=== PATIENT | female | born 1975 | race Caucasian/White ===

== ENCOUNTER → 2017-04-02 | Outpatient (CLI) | payer OTHER ==
[~2017-04-02] MED LIST: ASPCH81 PO; FOLI1TAB7 PO
--- NOTE | 2017-04-02 15:38 | MAMMOGRAPHY REPORT ---
BILATERAL DIGITAL DIAGNOSTIC MAMMOGRAM TOMOSYNTHESIS AND TARGETED BILATERAL ULTRASOUND: 04/02/2017 CLINICAL HISTORY: The patient was called back from a screening mammogram performed at an outside [facility] for bilateral asymmetries. TECHNIQUE: Breast tomosynthesis in addition to standard 2D mammography was performed. Left MLO 2-D and tomosynthesis images, right MLO and left cc tomosynthesis images including C views, and spot comp ression right CC 2-D and tomosynthesis images were obtained. COMPARISON: Comparison is made to exams dated: 07/10/2009 ultrasound, 07/10/2009 mammogram - [facility], and 03/22/2017 mammogram - [facility]. BREAST COMPOSITION: The tissue of both breasts is heterogeneously dense, which may obscure small mas ses. FINDINGS: The previously described asymmetry within the left inferior breast seen on the MLO view eff aces on the additional views and has the appearance of normal fibroglandular tissue. The previously described asymmetry within the right medial posterior breast also effaces on the additional views and has the appearance of normal fibroglandular tissue on the additional images. There are no suspiciou s masses, calcifications, or areas of architectural distortion noted in either breast on the addition al views. Targeted ultrasound was performed of the area of the asymmetries within the left inferior and right m edial posterior breast. No suspicious masses or other suspicious sonographic abnormalities are eviden t in these regions. IMPRESSION: ACR BI-RADS CATEGORY 2: BENIGN, TARGETED ULTRASOUND ACR BI-RADS CATEGORY 2: BENIGN Bilateral breast asymmetries efface on the additional views, without corresponding suspicious sonogra phic abnormalities evident. Findings are benign and compatible with normal overlapping fibroglandula r tissue. There is no mammographic or targeted sonographic evidence of malignancy. A 1 year screenin g mammogram is recommended. The patient has been verbally notified of the results. Approximately 10% of breast cancers are not detected with mammography. A negative mammographic report should not delay biopsy if a clinically suggestive mass is present. Sadia Martinez M.D. /:04/02/2017 10:51:36 Licensed Optician: Padmini Schultz RT(R)(M), [facility] letter sent: Normal 1/2 BI-RADS Code: ACR BI-RADS Category 2: Benign Ultrasound BI-RADS: ACR BI-RADS Category 2: Benign
== END | disposition home or self-care (01) ==
LOC: C.MAMM 09:23
PROVIDERS: ATTEND Nurse Practitioner
DX: N64.89 Other specified disorders of breast (principal)